=== PATIENT | female | born 1970 | race Caucasian/White ===

== ENCOUNTER → 2018-08-21 | Outpatient (CLI) | payer BC ==
--- NOTE | 2018-08-21 10:08 | Diagnostic Imaging Report ---
EXAM: US ABDOMEN COMPLETE DATE: 08/21/2018 8:43 AM INDICATION: Epigastric pain COMPARISON: None TECHNIQUE: Transverse and longitudinal isaac scale and color doppler sonographic images of the upper abdomen were obtained. FINDINGS: LIVER 15.3 cm in the right midclavicular line. Normal echogenicity, normal contour, no masses. SPLEEN 10 cm in maximum diameter. Normal echogenicity, no masses. GALLBLADDER No stones, sludge, wall-thickening or pericholecystic fluid. Negative sonographic Grossman's sign. BILE DUCTS No intra nor extra-hepatic biliary dilation. Common bile duct measures 0.4 cm PANCREAS: Visualized portions are normal. RIGHT KIDNEY: 13.1 cm in length Echogenicity: Normal Collecting System: No hydronephrosis Stones: None Cyst/Mass: None LEFT KIDNEY: 11.3 cm in length Echogenicity: Normal Collecting System: No hydronephrosis Stones: None Cyst/Mass: None VESSELS: Aorta: Nonaneurysmal Inferior Vena Cava: Patent Main Portal Vein: 1.2 cm, normal size with hepatopetal flow. FREE FLUID: None IMPRESSION: Unremarkable abdominal ultrasound. Signed by: Dr. Tariq Diehl M.D. on 08/21/2018 10:05 AM
== END ==
LOC: US 08:27
PROVIDERS: ATTEND Internal Medicine Gastroenterology
DX: R10.13 Epigastric pain (principal)
CPT/HCPCS: 76700